=== PATIENT | male | born 1975 | race African-American/Black ===

== ENCOUNTER 2019-03-17 06:43 | Emergency (ER) | payer SELFPAY | END 2019-03-17 07:38 | disposition home or self-care (01) | LOC: MADERS 06:43 | DX: R11.0 Nausea (principal); F17.210 Nicotine dependence, cigarettes, uncomplicated | CPT/HCPCS: 99283 ==

== ENCOUNTER 2022-08-20 05:37 | Emergency (ER) | payer SELFPAY ==
[2022-08-20] MEDS ORDERED: Acetaminophen 500 MG TAB ONE (06:12)
== END 2022-08-20 06:35 | disposition home or self-care (01) ==
LOC: MADERS 05:37
DX: J20.9 Acute bronchitis, unspecified (principal); R51.9 Headache, unspecified; F17.210 Nicotine dependence, cigarettes, uncomplicated; Z20.822 Contact with and (suspected) exposure to COVID-19
CPT/HCPCS: 87804; 99284; U0003; U0005

== ENCOUNTER 2022-08-22 09:45 | Emergency (ER) | payer SELFPAY ==
[2022-08-22] MEDS ORDERED: Dexamethasone 10 MG/ML VIAL ONE (10:04)
[2022-08-22] MEDS ORDERED: Amoxicillin/Potassium Clav 875 MG TAB ONE (10:10)
== END 2022-08-22 10:49 | disposition home or self-care (01) ==
LOC: MADERS 09:45
DX: R22.0 Localized swelling, mass and lump, head (principal); K00.7 Teething syndrome
CPT/HCPCS: 96372; 99283; J1100

== ENCOUNTER 2024-05-08 07:09 | Emergency (ER) | payer SELFPAY ==
[2024-05-08] MEDS ORDERED: Fluorescein Opthalmic Strip ONE (07:13)
[2024-05-08] MEDS ORDERED: Tetracaine 0.5% PF 4 ML BOT ONE (07:13)
[2024-05-08] MEDS ORDERED: Erythromycin Base 0.5% Ophth Oint 3.5 gm Tube ONE (07:54)
[2024-05-08] MEDS ORDERED: Ibuprofen 800 MG TAB ONE (07:54)
== END 2024-05-08 08:04 | disposition home or self-care (01) ==
LOC: MADERS 07:09
DX: L03.213 Periorbital cellulitis (principal); J01.90 Acute sinusitis, unspecified; H16.132 Photokeratitis, left eye
CPT/HCPCS: 99283